=== PATIENT | female | born 2000 | race Caucasian/White ===

== ENCOUNTER → 2021-11-11 17:15 | Outpatient (CLI) | payer OTHER, SELFPAY | PROVIDERS: Visit Provider Nurse Practitioner Family | DX: L02.91 Cutaneous abscess, unspecified (principal) | CPT/HCPCS: 87070; 87075; 87077; 87147; 87186; 87205 ==

== ENCOUNTER 2022-07-28 16:01 | Emergency (ER) | payer OTHER, SELFPAY ==
[2022-07-28 16:38] VITALS: BP 125/74; PULSE 86; RESP 18; TEMP 36.6; O2SAT 99; BMI 21.4
--- NOTE | 2022-07-28 18:00 | DI.US.S_ITS ---
PROCEDURE: US OB <= 14 WEEKS FETUS INDICATIONS: left ectopic? 4 rey weeks preg. OUTSIDE/PRIOR DATING DATA: Last menstrual period (LMP): Unknown. LMP-based estimated date of delivery (JESSICA): Unknown. TECHNIQUE: Real-time scanning was performed of the fetus and maternal pelvic organs, with image documentation. Endovaginal scanning was also performed to better visualize the fetus and maternal ovaries. COMPARISON: None. FINDINGS: Embryo: No intrauterine gestational sac. Endometrium measures 18 mm. Maternal organs: Trace fluid adjacent to the right adnexa. Right ovary is unremarkable. Left ovary simple cyst measuring 2 x 1.8 x 1.7 cm. No left ectopic identified. There is a subtle area of heterogeneity in the left ovary measuring 2.5 cm without internal vascularity. Blood flow seen in both ovaries. IMPRESSION: of uncertain location. No intrauterine gestational sac. Subtle area of heterogeneity in the left ovary. This could represent a complicated cyst or normal stroma. Right ovary is normal. Recommending trending beta hCG. Short-term follow-up ultrasound if clinically indicated. We strive to produce accurate, complete, and clear reports of imaging services. To assist us in improving patient care, this report was composed using standard report templates and voice recognition software. Therefore, it may contain abnormal punctuation, insertions and/or omissions. Occasional wrong-word or sound-alike substitutions may occur. Though we review the report and make efforts to correct it, we do recommend that the report be read carefully in proper context to recognize any text inaccuracies. Dictated by: Buzz Price M.D. on 07/28/2022 at 18:09 Approved by: Buzz Price M.D. on 07/28/2022 at 18:14
--- NOTE | 2022-07-28 18:02 | ED.PREGNANCY ---
HPI - <SANDRA Alston - Last Filed: 07/28/22 20:09> General Chief complaint: Urogenital-Female Stated complaint: cramping x5 days 4 weeks preg Time Seen by Provider: 07/28/22 17:53 Source: patient Mode of arrival: Ambulatory History of Present Illness HPI Narrative: This is a 21-year-old female presents to the emergency department after a positive test at home stating that [place] told her to come in and get checked out for her 5 days of left-sided pelvic cramping. She denies any vaginal bleeding, she denies any fever, chills, nausea, vomiting, dysuria, urinary frequency or urgency. She denies any changes to her vaginal discharge, denies any prior pregnancies. States that her last menses was in June, she does not remember when she conceived. She denies any recent trauma, denies any medications, her primary care provider is SANDRA Mistry. Related Data Home Medications Medication Instructions Recorded Confirmed No Known Home Medications 11/11/21 11/11/21 Allergies Allergy/AdvReac Type Severity Reaction Status Date / Time No Known Drug Allergies Allergy Unverified 11/11/21 16:42 Review of Systems <SANDRA Alston - Last Filed: 07/28/22 20:09> Review of Systems Narrative: Review of systems is negative for acute abnormalities unless otherwise noted in HPI Exam <SANDRA Alston - Last Filed: 07/28/22 20:09> Narrative Exam Narrative: Reviewed vitals signs and nursing notes. General: cooperative, comfortable, in no acute distress, well groomed HEENT: symmetrical facial expressions, moist mucous membranes GI: abdomen soft, nontender to palpation, nondistended, without masses, rebound tenderness or exquisite tenderness with exam. MSK: moves all extremities, neurovascularly intact, no weakness, normal tone Skin: brisk capillary refill, without pallor or erythema Neuro: normal speech and cognition, A&O x3, ambulatory, clear speech Psych: mental status is grossly normal, congruent mood, normal affect, pleasant and cooperative Initial Vital Signs Initial Vital Signs: Vital Signs Temperature 98 F 07/28/22 16:38 Pulse Rate 86 07/28/22 16:38 Respiratory Rate 18 07/28/22 16:38 Blood Pressure 125/74 07/28/22 16:38 Pulse Oximetry 99 07/28/22 16:38 Oxygen Delivery Method 07/28/22 16:38 <Lisa Diaz DO - Last Filed: 07/29/22 07:14> Initial Vital Signs Initial Vital Signs: Vital Signs Temperature 98 F 07/28/22 16:38 Pulse Rate 86 07/28/22 16:38 Respiratory Rate 18 07/28/22 16:38 Blood Pressure 125/74 07/28/22 16:38 Pulse Oximetry 99 07/28/22 16:38 Oxygen Delivery Method 07/28/22 16:38 Course <SANDRA Alston - Last Filed: 07/28/22 20:09> Orders Ordered: ED Orders 07/28/22 16:45 Urine Microscopic Stat 07/28/22 18:00 US OB <= 14 weeks fetus Stat 07/28/22 18:52 CBC Auto Diff [Complete Blood Count AUTO DIFF] Stat CMP [Comprehensive Metabolic Panel] Stat HCG Quantitative /Beta subunit Stat Vital Signs Vital signs: Vital Signs - 8 hr 07/28/22 16:38 Temperature 98 F Pulse Rate 86 Respiratory Rate 18 Blood Pressure 125/74 Pulse Oximetry 99 Oxygen Delivery Method Room Air <Lisa Diaz DO - Last Filed: 07/29/22 07:14> Orders Ordered: ED Orders 07/28/22 16:45 Urine Microscopic Stat 07/28/22 18:00 US OB <= 14 weeks fetus Stat 07/28/22 18:52 CBC Auto Diff [Complete Blood Count AUTO DIFF] Stat CMP [Comprehensive Metabolic Panel] Stat HCG Quantitative /Beta subunit Stat Vital Signs Vital signs: Vital Signs - 8 hr 07/28/22 16:38 Temperature 98 F Pulse Rate 86 Respiratory Rate 18 Blood Pressure 125/74 Pulse Oximetry 99 Oxygen Delivery Method Room Air MDM - OB/Uterine Contractions <SANDRA Alston - Last Filed: 07/28/22 20:09> Lab Data Result diagrams: 07/28/22 18:52 07/28/22 18:52 Labs: Lab Results 07/28/22 07/28/22 07/28/22 Range/Units 16:45 18:52 18:52 WBC 8.9 (4.5-11.0) X10^3/uL RBC 4.82 (4.0-5.2) X10^6/uL Hgb 15.1 (12.0-16.0) g/dL Hct 43.0 (36-46) % MCV 89.1 (80-100) fL MCH 31.3 (26-34) PG MCHC 35.1 (30-36) % RDW 12.6 (11.6-14.8) % Plt Count 253 (150-400) X10^3/uL Neut % (Auto) 78.3 H (50-75) % Lymph % (Auto) 16.3 L (25-40) % [place] % (Auto) 4.9 (3-14) % Eos % (Auto) 0.1 L (2-4) % Baso % (Auto) 0.4 (0-2) % Neut # (Auto) 6900 (8012-5513) /uL Lymph # (Auto) 1500 (7412-5862) /uL [place] # (Auto) 400 (0-900) /uL Eos # (Auto) 0 (0-450) /uL Baso # (Auto) 0 (0-100) /uL Sodium 141 (137-145) mmol/L Potassium 3.6 (3.4-5.1) mmol/L Chloride 103 (98-107) mmol/L Carbon Dioxide 24 (22-32) mmol/L BUN 9 (7-17) mg/dL Creatinine 0.73 (0.52-1.04) mg/dL Estimated GFR > 60 (>60) mL/min BUN/Creatinine Ratio 12.3 (6-22) Glucose 85 (70-100) mg/dL Calcium 9.7 (8.4-10.2) mg/dL Total Bilirubin 0.5 (0.2-1.3) mg/dL AST 28 (14-36) IU/L ALT 19 (<35) IU/L Alkaline Phosphatase 79 (38-126) U/L Total Protein 9.3 H (6.3-8.2) g/dL Albumin 5.1 H (3.5-5.0) g/dL Globulin 4.2 H (1.7-4.1) g/dL Albumin/Globulin Ratio 1.2 (1.0-2.8) HCG, Quant 197.4 mIU/mL Urine RBC 0-1/hpf (0-5/HPF) Urine WBC None seen (0-5/HPF) Ur Squamous Epith Cells 0-1 /hpf (0-5/HPF) Urine Bacteria Occasional (0-1) (None) Ur Culture Indicated? Cult not indicated Point of Care Testing Test Results Positive Urine Dip Bedside Urine Glucose Negative Bedside Urine Bilirubin - Negative Bedside Urine Ketone - Negative Urine Specific [place] 1.015 Bedside Urine Occult Blood - Negative Bedside Urine pH 6.0 Bedside Urine Protein - Negative Bedside Urine Urobilinogen - Negative Bedside Urine Nitrite - Negative Bedside Urine Leukocytes - Negative Esterase UA is negative for infection Imaging Data US - OB: Radiologist's Impression: PROCEDURE:? US OB <= 14 WEEKS FETUS ? INDICATIONS:? left ectopic? 4 rey weeks preg. ? OUTSIDE/PRIOR DATING DATA:? Last menstrual period (LMP):? Unknown.? LMP-based estimated date of delivery (JESSICA):? Unknown.? ? TECHNIQUE:? Real-time scanning was performed of the fetus and maternal pelvic organs, with image documentation.? Endovaginal scanning was also performed to better visualize the fetus and maternal ovaries.? ? COMPARISON:? None. ? FINDINGS:? ? Embryo:? No intrauterine gestational sac.? Endometrium measures 18 mm. ? Maternal organs:? Trace fluid adjacent to the right adnexa.? Right ovary is unremarkable. ?Left ovary simple cyst measuring 2 x 1.8 x 1.7 cm.? No left ectopic identified.? There is a subtle area of heterogeneity in the left ovary measuring 2.5 cm without internal vascularity.? Blood flow seen in both ovaries. ? IMPRESSION:? of uncertain location. ? No intrauterine gestational sac. ? Subtle area of heterogeneity in the left ovary.? This could represent a complicated cyst or normal stroma.? Right ovary is normal. ? Recommending trending beta hCG.? Short-term follow-up ultrasound if clinically indicated. ? We strive to produce accurate, complete, and clear reports of imaging services. To assist us in improving patient care, this report was composed using standard report templates and voice recognition software. Therefore, it may contain abnormal punctuation, insertions and/or omissions. Occasional wrong-word or sound-alike substitutions may occur. Though we review the report and make efforts to correct it, we do recommend that the report be read carefully in proper context to recognize any text inaccuracies. ? ? Dictated by: Buzz Price M.D. on 07/28/2022 at 18:09 ? ? Approved by: Buzz Price M.D. on 07/28/2022 at 18:14 ? [facility] Narrative Medical decision making narrative: This is a 21-year-old female with a positive test at home who presents to the emergency department for left-sided pelvic cramping which started 5 days ago without vaginal bleeding. Today her hCG was 197.4, ultrasound says of unknown location, no intrauterine gestational sac, subtle area of heterogenicity in the left ovary, this could represent complicated cyst or normal stroma, right ovary is normal. Patient was not exquisitely tender over this area, she does have a left ovarian simple cyst measuring 2 x 1.8 x 1.7 cm. No left ectopic identified on ultrasound. Blood flow is seen in both ovaries. Recommend trending hCG, patient has scheduled follow-up in 2 days with her PCP, Patsy Phillips. Recommend follow-up ultrasound and hCG. Patient was given strict return precautions for worsening of her pain to come directly to the emergency department, she has never been , denies any bleeding, has not taken any medications, encouraged Tylenol, hydration, return for any worsening of this pain prior to her appointment on Tuesday and to follow-up with her PCP as needed. Her UA is negative for infection, lab work without leukocytosis, anemia, no elevation in her liver enzymes, electrolyte abnormalities. Differential diagnoses also considered include ectopic , ruptured ovarian cyst, incomplete miscarriage, threatened . Patient is appropriate and amenable to discharge home. Vital signs are stable on repeat examination is unremarkable. Patient has been informed of results. Patient has been given strict return to ER precautions for any new or worsening symptoms. Patient understands to follow up closely with outpatient providers as instructed. Patient understands plan and agrees to discharge home. All questions and concerns answered at this time. <Lisa Diaz, DO - Last Filed: 07/29/22 07:14> Lab Data Labs: Lab Results 07/28/22 07/28/22 07/28/22 Range/Units 16:45 18:52 18:52 WBC 8.9 (4.5-11.0) X10^3/uL RBC 4.82 (4.0-5.2) X10^6/uL Hgb 15.1 (12.0-16.0) g/dL Hct 43.0 (36-46) % MCV 89.1 (80-100) fL MCH 31.3 (26-34) PG MCHC 35.1 (30-36) % RDW 12.6 (11.6-14.8) % Plt Count 253 (150-400) X10^3/uL Neut % (Auto) 78.3 H (50-75) % Lymph % (Auto) 16.3 L (25-40) % [place] % (Auto) 4.9 (3-14) % Eos % (Auto) 0.1 L (2-4) % Baso % (Auto) 0.4 (0-2) % Neut # (Auto) 6900 (5179-5956) /uL Lymph # (Auto) 1500 (8588-6441) /uL [place] # (Auto) 400 (0-900) /uL Eos # (Auto) 0 (0-450) /uL Baso # (Auto) 0 (0-100) /uL Sodium 141 (137-145) mmol/L Potassium 3.6 (3.4-5.1) mmol/L Chloride 103 (98-107) mmol/L Carbon Dioxide 24 (22-32) mmol/L BUN 9 (7-17) mg/dL Creatinine 0.73 (0.52-1.04) mg/dL Estimated GFR > 60 (>60) mL/min BUN/Creatinine Ratio 12.3 (6-22) Glucose 85 (70-100) mg/dL Calcium 9.7 (8.4-10.2) mg/dL Total Bilirubin 0.5 (0.2-1.3) mg/dL AST 28 (14-36) IU/L ALT 19 (<35) IU/L Alkaline Phosphatase 79 (38-126) U/L Total Protein 9.3 H (6.3-8.2) g/dL Albumin 5.1 H (3.5-5.0) g/dL Globulin 4.2 H (1.7-4.1) g/dL Albumin/Globulin Ratio 1.2 (1.0-2.8) HCG, Quant 197.4 mIU/mL Urine RBC 0-1/hpf (0-5/HPF) Urine WBC None seen (0-5/HPF) Ur Squamous Epith Cells 0-1 /hpf (0-5/HPF) Urine Bacteria Occasional (0-1) (None) Ur Culture Indicated? Cult not indicated Point of Care Testing Test Results Positive Urine Dip Bedside Urine Glucose Negative Bedside Urine Bilirubin - Negative Bedside Urine Ketone - Negative Urine Specific [place] 1.015 Bedside Urine Occult Blood - Negative Bedside Urine pH 6.0 Bedside Urine Protein - Negative Bedside Urine Urobilinogen - Negative Bedside Urine Nitrite - Negative Bedside Urine Leukocytes - Negative Esterase Discharge Plan Departure Patient Disposition: Home Clinical Impression: Threatened miscarriage in early Instructions: Threatened Miscarriage, DI for Threatened Activity Restrictions/Additional Instructions: *You have been diagnosed with positive test, today your hCG level is 197.2, your ultrasound does not show any intrauterine gestational sac, the endometrium measures 18 mm, there is a small amount of fluid in the right pelvis which could be a ruptured ovarian cyst, of uncertain location, subtle area of heterogenicity in the left ovary, this could represent a complicated cyst or normal stroma, right ovary is normal. Please follow-up in 2 days at your appointment with Patsy Phillips. Please have your hCG rechecked and a follow-up ultrasound scheduled or completed that day. If you have any severe pain, vaginal bleeding, or other complication, please come back to the emergency department prior to that appointment. Please stay hydrated, take it easy, avoid any running, jarring movements or exertional exercise. I hope that you start feeling better soon. This could still be an ectopic that is too early to show on ultrasound. For worsening cramping, please come back to the emergency department immediately. For your pain, use Tylenol, drink plenty of water, I hope you feel better soon. *What to do: *Please continue to take your regular medications as directed. [ ] New medication prescriptions sent to your pharmacy: [ ] [ ] New medication written as a paper prescription [x ] No new medications given *Please follow up with your primary care provider in 2-3 days, call for an appointment. Let them know you were seen in the Emergency Department and that we asked that you be seen for follow-up. We will electronically transmit a record of today's note if your PCP is in our system *If you do not have a primary care provider please contact [phone] to establish care with one of the [facility] primary care providers. *Return to Emergency Department if you should have any new, worsening, or concerning symptoms, such as [fever greater than 101F, chills, worsening pain, persistent vomiting or other bothersome symptoms]. Prescriptions: No Action No Known Home Medications Referrals: Patsy Mistry ARNP [Non-Staff] - Stand Alone Forms: Work Release Note Visit Report Forms: Patient Portal/API <Lisa Diaz DO - Last Filed: 07/29/22 07:14> Cosign ED Attending Jemima Attestation: I was immediately available in the department for consultation. Documentation has been reviewed. I agree with assessment and plan.
[2022-07-28 18:27] LABS: Bacteria Urine Occasional (0-1); RBC Urine 0-1/HPF (0-5/HPF); Squamous Epithelial Cell Urine 0-1 /HPF (0-5/HPF); WBC Urine None Seen (0-5/HPF)
[2022-07-28 18:28] LABS: Culture Indicated Urine Cult Not Indicated
[2022-07-28 19:10] LABS: Add Manual Diff / Slide Review NO; Basophils Absolute Auto 0 /uL (0-100); Basophils Percent Auto 0.4 % (0-2); Eosinophils Absolute Auto 0 /uL (0-450); Eosinophils Percent Auto 0.1 % (2-4); Hemoglobin 15.1 g/dL (12.0-16.0); Lymphocytes Absolute Auto 1500 /uL (1100-4500); Lymphocytes Percent Auto 16.3 % (25-40); Mean Corpuscular HGB Conc 35.1 % (30-36); Mean Corpuscular Hemoglobin 31.3 PG (26-34); Mean Corpuscular Volume 89.1 fL (80-100); Monocytes Absolute Auto 400 /uL (0-900); Monocytes Percent Auto 4.9 % (3-14); Neutrophils Absolute Auto 6900 /uL (1500-7000); Neutrophils Percent Auto 78.3 % (50-75); Platelet Count 253 X10^3/uL (150-400); Red Blood Cell Count 4.82 X10^6/uL (4.0-5.2); Red Cell Distribution Width 12.6 % (11.6-14.8); White Blood Cell Count 8.9 X10^3/uL (4.5-11.0)
[2022-07-28 19:34] LABS: Alanine Aminotransferase 19 IU/L (<35); Albumin 5.1 g/dL (3.5-5.0); Albumin Globulin Ratio 1.2 (1.0-2.8); Alkaline Phosphatase 79 U/L (38-126); Aspartate Aminotransferase 28 IU/L (14-36); BUN Creatinine Ratio 12.3 (6-22); Bilirubin Total 0.5 mg/dL (0.2-1.3); Blood Urea Nitrogen 9 mg/dL (7-17); Calcium 9.7 mg/dL (8.4-10.2); Carbon Dioxide 24 mmol/L (22-32); Chloride 103 mmol/L (98-107); Estimated Glomerular Filt Rate > 60 mL/min (>60); Globulin 4.2 g/dL (1.7-4.1); Glucose 85 mg/dL (70-100); HEMOLYSIS < 15 (0-50); Potassium 3.6 mmol/L (3.4-5.1); Sodium 141 mmol/L (137-145); Total Protein 9.3 g/dL (6.3-8.2)
[2022-07-28 19:51] LABS: HCG Quantitative /Beta subunit 197.4 mIU/mL
== END 2022-07-28 20:09 | disposition home or self-care (01) ==
PROVIDERS: Emergency Provider Nurse Practitioner Critical Care Medicine
DX: O20.0 Threatened abortion (principal); Z3A.01 Less than 8 weeks gestation of pregnancy
CPT/HCPCS: 36415; 76801; 76817; 80053; 81003; 81015; 81025; 84702; 85025; 99283; 99284

== ENCOUNTER → 2022-12-01 06:40 | Outpatient (CLI) | payer OTHER, SELFPAY ==
--- NOTE | 2022-12-01 06:41 | DI.US.S_ITS ---
PROCEDURE: US OB >= 14 WEEKS FETUS INDICATIONS: ANATOMY SCAN OUTSIDE/PRIOR DATING DATA: Per clinician order, LMP 07/10/2022 corresponding to JESSICA of 04/16/2023. Possible working JESSICA 04/06/2023 per worksheet. Per patient, LMP earlier then 07/10/2022. Correlation with outside or known JESSICA recommended TECHNIQUE: Real-time scanning was performed of the fetus, with image documentation and biometric measurements. COMPARISON: [facility], , OB <= 14 WEEKS FETUS, 07/28/2022, 18:21. FINDINGS: General: A single living intrauterine gestation is present. Presentation: Vertex. Placenta: Placental position is posterior , without previa. Amniotic fluid index: 17.8 cm, normal range is 5-24 cm. Single deepest vertical pocket is 5.7 cm. heart rate: 147 beats per minute. Maternal cervical canal: 4.5 cm long. Normal lower limit is 2.5 cm. biometrics: Biparietal diameter: 5.6 cm 22 weeks 6 days Head circumference: 20.6 cm 22 weeks 5 days Abdominal circumference: 18.1 cm 23 weeks 0 days Femur length: 3.6 cm 21 weeks 3 days estimated gestational age by LMP: 20 weeks 4 days Composite gestational age from present scan: 22 weeks 4 days Estimated weight and percentile: 496 g, percentile not calculated due to dating uncertainty as above Anatomic survey: Neuro: Ventricles are non-dilated at less than 10 mm. Cisterna magna is normal at 3-11 mm. Cerebellum is normal in size and morphology. Nuchal skin fold: Normal at less than 6 mm between 14-21 weeks gestational age. Face: Nose and lips, facial profile are normal. Spine: No evidence for spina bifida. Heart: 4-chambered heart is present, with normal ventricular outflow tracts. Diaphragm: Diaphragm is intact. Stomach: Left-sided stomach is present. Kidneys: No hydronephrosis. Normal is less than 5 mm in 2nd trimester, less than 7 mm in 3rd trimester. Cord: 3-vessel cord has orthotopic insertion. Bladder: Normal in size. Extremities: All 4 extremities identified. IMPRESSION: 1. Single living intrauterine . 2. Normal 2nd trimester anatomy survey. No anomalies detected at this time. 3. Unclear dating. Correlation with outside are known JESSICA recommended. We strive to produce accurate, complete, and clear reports of imaging services. To assist us in improving patient care, this report was composed using standard report templates and voice recognition software. Therefore, it may contain abnormal punctuation, insertions and/or omissions. Occasional wrong-word or sound-alike substitutions may occur. Though we review the report and make efforts to correct it, we do recommend that the report be read carefully in proper context to recognize any text inaccuracies. Dictated by: Dominick Gomez M.D. on 12/01/2022 at 19:53 Approved by: Dominick Gomez M.D. on 12/01/2022 at 20:05
== END ==
PROVIDERS: Referring Provider Nurse Practitioner Obstetrics & Gynecology; Visit Provider Nurse Practitioner Obstetrics & Gynecology
DX: Z3A.22 22 weeks gestation of pregnancy; Z36.89 Encounter for other specified antenatal screening
CPT/HCPCS: 76811